=== PATIENT | female | born 1995 | race Caucasian/White ===

== ENCOUNTER 2017-07-27 23:17 | Emergency (ER) | payer MEDICAID ==
[~2017-07-27] VITALS: Ht 154.9 cm; Wt 74.0 kg
[~2017-07-27 23:17] MED LIST: ARIP10TA33 PO; QUET200T4 PO
[2017-07-28 01:22] LABS: HEMATOCRIT 45.9 % (34.6-47.8); HEMOGLOBIN 15.4 g/dL (11.7-16.4); WHITE BLOOD COUNT 10.6 x10^3/uL (4.5-13.2)
[2017-07-28 01:29] LABS: BLOOD UREA NITROGEN 8 mg/dL (7-18)
[2017-07-28 01:36] LABS: HCG UR OBC PASS
[2017-07-28] MEDS ORDERED: ONDANSETRON ODT 4 MG PO ONE (02:00)
[2017-07-28] MEDS ORDERED: IBUPROFEN 200 MG TABLET PO ONE (02:00)
[2017-07-28] MEDS ORDERED: IBUPROFEN 200 MG TABLET ONE (03:03)
[2017-07-28] MEDS ORDERED: ONDANSETRON ODT 4 MG ONE (03:03)
[2017-07-28 03:08] VITALS: BP 113/84
== END 2017-07-28 03:34 | disposition home or self-care (01) ==
LOC: ED 23:59
DX: I88.0 Nonspecific mesenteric lymphadenitis (principal); K21.9 Gastro-esophageal reflux disease without esophagitis; J45.909 Unspecified asthma, uncomplicated
CPT/HCPCS: 36415; 74176; 80048; 81001; 81025; 85025; 87086; 99285; Q0162

== ENCOUNTER 2017-08-14 00:44 | Emergency (ER) | payer MEDICAID ==
[~2017-08-14] VITALS: Ht 157.5 cm; Wt 76.1 kg
[2017-08-14 01:16] LABS: HCG UR OBC PASS; PATH.CAST-FLAG NOT PRESENT; SPERM-FLAG NOT PRESENT; SRC-FLAG NOT PRESENT; XTAL-FLAG NOT PRESENT; YLC-FLAG NOT PRESENT
[2017-08-14] MEDS ORDERED: ANTI-EMETIC PO (01:42)
[2017-08-14] MEDS ORDERED: ACID REFLUX MED PO (01:42)
[2017-08-14 04:11] VITALS: BP 116/70
== END 2017-08-14 04:13 | disposition home or self-care (01) ==
LOC: ED 01:44
DX: R10.32 Left lower quadrant pain (principal); R11.2 Nausea with vomiting, unspecified; R19.7 Diarrhea, unspecified; K21.9 Gastro-esophageal reflux disease without esophagitis; F41.9 Anxiety disorder, unspecified; F31.9 Bipolar disorder, unspecified; J45.909 Unspecified asthma, uncomplicated
CPT/HCPCS: 36415; 76830; 81001; 81025; 84703; 99285

== ENCOUNTER 2017-10-14 17:28 | Emergency (ER) | payer MEDICAID ==
[~2017-10-14] VITALS: Ht 157.5 cm; Wt 73.2 kg
[~2017-10-14 17:28] MED LIST changes: +ACID REFLUX MED PO; +ANTI-EMETIC PO
[2017-10-14] MEDS ORDERED: ONDANSETRON 2MG/ML, 2ML ONE (17:58)
[2017-10-14] MEDS ORDERED: ACETAMINOPHEN 325 MG TABLET ONE (17:58)
[2017-10-14] MEDS ORDERED: ACETAMINOPHEN 325 MG TABLET PO ONE (18:00)
[2017-10-14 18:12] LABS: RAPID INFLUENZA A Negative (Negative); RAPID INFLUENZA B Negative (Negative)
[2017-10-14] MEDS ORDERED: SODIUM CHLORIDE 0.9% 1,000ML IVBOLUS ONE ×2 (18:30→20:30)
[2017-10-14] MEDS ORDERED: ONDANSETRON 2MG/ML, 2ML IVPush ONE (18:30)
[2017-10-14 18:33] LABS: HEMATOCRIT 42.2 % (34.6-47.8); HEMOGLOBIN 14.4 g/dL (11.7-16.4); WHITE BLOOD COUNT 9.8 x10^3/uL (4.5-13.2)
[2017-10-14 18:43] LABS: ASPARTATE AMINO TRANSFERASE 20 U/L (15-37); BLOOD UREA NITROGEN 7 mg/dL (7-18)
[2017-10-14] MEDS ORDERED: SODIUM CHLORIDE FLUSH 10ML SYR IVF ONE (19:00)
[2017-10-14 21:21] LABS: DAU SCREEN DISCLAIMER
[2017-10-14 23:07] VITALS: BP 126/74
== END 2017-10-14 23:10 | disposition home or self-care (01) ==
LOC: ED 17:54
DX: O26.891 Other specified pregnancy related conditions, first trimester (principal); F12.129 Cannabis abuse with intoxication, unspecified; F14.129 Cocaine abuse with intoxication, unspecified; F10.129 Alcohol abuse with intoxication, unspecified; O99.341 Other mental disorders complicating pregnancy, first trimester; F31.9 Bipolar disorder, unspecified; K21.9 Gastro-esophageal reflux disease without esophagitis; Z3A.01 Less than 8 weeks gestation of pregnancy
CPT/HCPCS: 36415; 71010; 76700; 80053; 80307; 81003; 83605; 83690; 84145; 84443; 84702; 85025; 87040; 87081; 87147; 87400; 87880; 93005; 96374; 99285; J2405; J7030; G0479

== ENCOUNTER 2017-10-29 20:02 | Emergency (ER) | payer MEDICAID ==
[~2017-10-29] VITALS: Ht 157.5 cm; Wt 72.1 kg
[2017-10-29 20:41] LABS: HEMATOCRIT 43.5 % (34.6-47.8); HEMOGLOBIN 14.9 g/dL (11.7-16.4); WHITE BLOOD COUNT 8.7 x10^3/uL (4.5-13.2)
[2017-10-29 20:53] LABS: ASPARTATE AMINO TRANSFERASE 20 U/L (15-37); BLOOD UREA NITROGEN 13 mg/dL (7-18)
[2017-10-29 21:43] VITALS: BP 114/68
== END 2017-10-29 22:35 | disposition home or self-care (01) ==
LOC: ED 20:52
DX: N93.8 Other specified abnormal uterine and vaginal bleeding (principal); K21.9 Gastro-esophageal reflux disease without esophagitis; F31.9 Bipolar disorder, unspecified
CPT/HCPCS: 36415; 76801; 80053; 81001; 84702; 85025; 86901; 87086; 99285

== ENCOUNTER 2017-12-13 14:22 | Emergency (ER) | payer MEDICAID ==
[~2017-12-13] VITALS: Ht 157.5 cm; Wt 70.9 kg
[2017-12-13 14:24] VITALS: BP 118/82
[2017-12-13] MEDS ORDERED: DIPH,PERTUSS(ACELL),TET VAC/PF 0.5 ML IM-VACC ONE ×2 (14:51→15:00)
[2017-12-13] MEDS ORDERED: BACITRACIN ZINC OINT 500U/GM, 0.9 GM ONE (15:01)
== END 2017-12-13 15:20 | disposition home or self-care (01) ==
LOC: ED 14:40
DX: S71.151A Open bite, right thigh, initial encounter (principal); W54.0XXA Bitten by dog, initial encounter; Y93.9 Activity, unspecified; Y92.89 Other specified places as the place of occurrence of the external cause; Y99.8 Other external cause status
CPT/HCPCS: 90471; 90715; 99283

== ENCOUNTER 2018-03-30 05:15 | Emergency (ER) | payer MEDICAID ==
[~2018-03-30] VITALS: Ht 157.5 cm; Wt 63.7 kg
[2018-03-30 05:58] LABS: HCG UR SG 1.015 (1.003-1.030)
[2018-03-30 05:59] LABS: BASOPHILS # (AUTO) 0.02 x10^3/uL (0-0.3); BASOPHILS % (AUTO) 0 % (0-1); EOSINOPHILS # (AUTO) 0.01 x10^3/uL (0-0.8); EOSINOPHILS % (AUTO) 0 % (1-7); LYMPHOCYTES % (AUTO) 27 % (22-44); MD NO; MEAN CORPUSCULAR HEMOGLOBIN 30.9 pg (27.0-34.8); MEAN CORPUSCULAR HGB CONC 34.2 g/dL (32.4-35.8); MEAN CORPUSCULAR VOLUME 90.1 fL (80-100); MEAN PLATELET VOLUME 8.9 fL (7.4-10.4); MONOCYTES # (AUTO) 0.32 x10^3/uL (0-1.4); MONOCYTES % (AUTO) 5 % (2-9); NEUTROPHILS # (AUTO) 4.54 x10^3/uL (1.8-8.0); NEUTROPHILS % (AUTO) 68 % (42-75); PLATELET COUNT 342 x10^3/uL (130-400); RED BLOOD COUNT 5.02 x10^6/uL (3.82-5.3); RED CELL DISTRIBUTION WIDTH 13.8 % (9.6-15.2)
[2018-03-30 06:10] LABS: ALBUMIN 4.4 g/dL (3.4-5.0); ANION GAP 10 mmol/L (5-15); CHLORIDE 110 mmol/L (98-107)
[2018-03-30 06:11] LABS: CREATININE 0.66 mg/dL (0.55-1.02); SALICYLATE LEVEL < 1.7 mg/dL (2.8-20.0)
[2018-03-30 06:12] LABS: ACETAMINOPHEN < 2 mcg/mL (10-30)
[2018-03-30 06:14] LABS: AMPHETAMINE SCREEN, URINE Negative (Negative); BARBITURATE SCREEN, URINE Negative (Negative); BENZODIAZEPINE SCREEN, URINE Negative (Negative); CANNABINOID SCREEN, URINE Positive (Negative); COCAINE SCREEN, URINE Negative (Negative); METHADONE SCREEN, URINE Negative (Negative); OPIATE SCREEN, URINE Negative (Negative)
[2018-03-30] MEDS ORDERED: ZIPRASIDONE 20 MG INJ IM ONE ×2 (10:54→11:00)
[2018-03-30] MEDS ORDERED: ONDANSETRON ODT 4 MG ONE (11:21)
[2018-03-30] MEDS ORDERED: ONDANSETRON ODT 4 MG PO ONE (11:30)
[2018-03-30] MEDS ORDERED: LORazepam 1MG TABLET PO PRN (12:00)
[2018-03-30] MEDS ORDERED: ACETAMINOPHEN 325 MG TABLET PO PRN (12:00)
[2018-03-30] MEDS ORDERED: ONDANSETRON ODT 4 MG PO PRN (12:00)
[2018-03-30] MEDS ORDERED: ALBUTEROL SULFATE 2.5 MG/3 ML ONE (21:28)
[2018-03-30] MEDS ORDERED: ALBUTEROL SULFATE 2.5 MG/3 ML NPPB PRN (22:00)
[2018-03-31 12:23] VITALS: BP 118/74
[2018-04-02] MEDS ORDERED: MORPHINE SULFATE 4 MG/ML, 1ML ONE (13:42)
[2018-04-06] MEDS ORDERED: BACITRACIN ZINC OINT 500U/GM, 0.9 GM ONE (06:32)
== END 2018-03-30 14:19 ==
LOC: ED 07:10 → EDIP 11:25 → UNDOADMOB 11:25
DX: R45.851 Suicidal ideations (principal); F20.0 Paranoid schizophrenia; F10.20 Alcohol dependence, uncomplicated; F31.9 Bipolar disorder, unspecified; K21.9 Gastro-esophageal reflux disease without esophagitis; J45.909 Unspecified asthma, uncomplicated; F17.200 Nicotine dependence, unspecified, uncomplicated
CPT/HCPCS: 36415; 80048; 80307; 80329; 81025; 82040; 85025; 94640; 96372; 99285; J3486; Q0162; G0480

== ENCOUNTER 2018-04-25 19:39 | Observation (INO) | payer MEDICAID ==
[~2018-04-25] VITALS: Ht 160 cm; Wt 67.3 kg
[2018-04-25 20:39] LABS: BASOPHILS # (AUTO) 0.02 x10^3/uL (0-0.3); BASOPHILS % (AUTO) 0 % (0-1); EOSINOPHILS % (AUTO) 1 % (1-7); LYMPHOCYTES # (AUTO) 2.14 x10^3/uL (1-6.1); LYMPHOCYTES % (AUTO) 18 % (22-44); MD NO; MEAN CORPUSCULAR HEMOGLOBIN 30.8 pg (27.0-34.8); MEAN CORPUSCULAR HGB CONC 33.8 g/dL (32.4-35.8); MEAN CORPUSCULAR VOLUME 91.3 fL (80-100); MEAN PLATELET VOLUME 8.2 fL (7.4-10.4); MONOCYTES # (AUTO) 0.74 x10^3/uL (0-1.4); MONOCYTES % (AUTO) 6 % (2-9); NEUTROPHILS # (AUTO) 8.83 x10^3/uL (1.8-8.0); NEUTROPHILS % (AUTO) 75 % (42-75); PLATELET COUNT 380 x10^3/uL (130-400); RED BLOOD COUNT 4.66 x10^6/uL (3.82-5.3); RED CELL DISTRIBUTION WIDTH 14.4 % (9.6-15.2)
[2018-04-25 20:45] LABS: AMPHETAMINE SCREEN, URINE Negative (Negative); BARBITURATE SCREEN, URINE Negative (Negative); BENZODIAZEPINE SCREEN, URINE Negative (Negative); CANNABINOID SCREEN, URINE Positive (Negative); COCAINE SCREEN, URINE Negative (Negative); METHADONE SCREEN, URINE Negative (Negative); OPIATE SCREEN, URINE Negative (Negative)
[2018-04-25 20:46] LABS: ALBUMIN 3.7 g/dL (3.4-5.0); ANION GAP 9 mmol/L (5-15); CALCIUM 9.1 mg/dL (8.5-10.1); CHLORIDE 107 mmol/L (98-107)
[2018-04-25 20:49] LABS: SALICYLATE LEVEL < 1.7 mg/dL (2.8-20.0)
[2018-04-25 20:52] LABS: ALANINE AMINOTRANSFERASE 146 U/L (12-78); ALKALINE PHOSPHATASE 117 U/L (45-117); BILIRUBIN,TOTAL 0.6 mg/dL (0.2-1.0); CREATININE 0.67 mg/dL (0.55-1.02); TOTAL PROTEIN 7.2 g/dL (6.4-8.2)
[2018-04-25 20:59] LABS: ACETAMINOPHEN < 2 mcg/mL (10-30)
[2018-04-25] MEDS ORDERED: ZIPRASIDONE 20 MG INJ IM ONE (22:30)
[2018-04-25] MEDS ORDERED: ONDANSETRON ODT 4 MG PO PRN (23:00)
[2018-04-26 00:03] VITALS: BP 131/80
[2018-04-26 07:42] VITALS: BP 111/74
[2018-04-26] MEDS ORDERED: HYDROXYZINE PAMOATE 50MG CAP PO PRN (14:30)
[2018-04-26] MEDS ORDERED: BENZTROPINE 1 MG TABLET ONE (15:41)
[2018-04-26] MEDS ORDERED: BENZTROPINE 1 MG TABLET PO ONE (16:00)
[2018-04-26] MEDS: LORazepam 1MG TABLET PO PRN ×2 (16:02→21:10)
[2018-04-26 19:38] VITALS: BP 101/71
[2018-04-26] MEDS: BENZTROPINE 1 MG TABLET PO SCH (20:07)
[2018-04-26] MEDS: HALOPERIDOL 5 MG TABLET PO SCH (20:07)
[2018-04-27] MEDS: ACETAMINOPHEN 325 MG TABLET PO PRN (07:37)
[2018-04-27 08:00] VITALS: BP 112/74
[2018-04-27] MEDS: BENZTROPINE 1 MG TABLET PO SCH ×2 (09:11→20:23)
[2018-04-27] MEDS: HALOPERIDOL 5 MG TABLET PO SCH (09:11)
[2018-04-27 19:19] VITALS: BP 119/81
[2018-04-27] MEDS: LORazepam 1MG TABLET PO PRN (20:23)
[2018-04-28] MEDS: LORazepam 1MG TABLET PO PRN ×3 (04:53→19:38)
[2018-04-28] MEDS: ACETAMINOPHEN 325 MG TABLET PO PRN (07:27)
[2018-04-28] MEDS: BENZTROPINE 1 MG TABLET PO SCH (07:28)
[2018-04-28] MEDS: HALOPERIDOL 5 MG TABLET PO SCH (07:28)
[2018-04-28 07:38] VITALS: BP 115/80
[2018-04-28 19:22] VITALS: BP 104/63
== END 2018-04-28 20:23 ==
LOC: ED 20:37 → EDIP 22:08 → 3E 23:37
PROVIDERS: ADMIT Family Medicine; ATTEND Hospitalist
DX: R45.851 Suicidal ideations (principal); F31.9 Bipolar disorder, unspecified; F20.9 Schizophrenia, unspecified; G89.29 Other chronic pain; K21.9 Gastro-esophageal reflux disease without esophagitis; D72.829 Elevated white blood cell count, unspecified; R74.0 Nonspecific elevation of levels of transaminase and lactic acid dehydrogenase [LDH]; J45.909 Unspecified asthma, uncomplicated; F43.10 Post-traumatic stress disorder, unspecified
CPT/HCPCS: 36415; 80053; 80307; 80329; 84443; 84703; 85025; 93005; 96372; 99285; G0378; J3486; G0480

== ENCOUNTER 2018-10-27 23:27 | Emergency (ER) | payer MEDICAID ==
[2018-10-27] MEDS ORDERED: KETOROLAC 30 MG/1 ML ONE (23:56)
[2018-10-27] MEDS ORDERED: MAALOX/HYOSCYAMINE/LIDOCAINE 45 ML BTL ONE (23:56)
[2018-10-28] MEDS ORDERED: MAALOX/HYOSCYAMINE/LIDOCAINE 45 ML BTL PO ONE
[2018-10-28] MEDS ORDERED: KETOROLAC 30 MG/1 ML IM ONE
[2018-10-28 01:00] VITALS: BP 128/81
== END 2018-10-28 01:02 | disposition home or self-care (01) ==
LOC: ED 23:55
DX: R07.9 Chest pain, unspecified (principal); F20.9 Schizophrenia, unspecified; F41.9 Anxiety disorder, unspecified; K21.9 Gastro-esophageal reflux disease without esophagitis; F29 Unspecified psychosis not due to a substance or known physiological condition; J45.909 Unspecified asthma, uncomplicated; F32.9 Major depressive disorder, single episode, unspecified; F12.10 Cannabis abuse, uncomplicated; Z72.9 Problem related to lifestyle, unspecified
CPT/HCPCS: 36415; 71045; 85379; 93005; 96372; 99284; J1885; 99283

== ENCOUNTER 2019-03-21 08:02 | Emergency (ER) | payer MEDICAID ==
[~2019-03-21] VITALS: Ht 157.5 cm; Wt 76.0 kg
[2019-03-21 08:12] VITALS: BP 122/78
[2019-03-21] MEDS ORDERED: FAMOTIDINE 20 MG TABLET PO ONE (08:30)
[2019-03-21] MEDS ORDERED: DIPHENHYDRAMINE 25 MG CAPSULE PO ONE (08:30)
[2019-03-21] MEDS ORDERED: FAMOTIDINE 20 MG TABLET ONE (09:02)
[2019-03-21] MEDS ORDERED: DIPHENHYDRAMINE 25 MG CAPSULE ONE (09:03)
[2019-03-21 09:21] LABS: HCG UR SG 1.022 (1.003-1.030); MICROSCOPIC NOT IND
[2019-03-21 09:26] LABS: CULTURE INDICATED? NO
[2019-03-21] MEDS ORDERED: KETOROLAC 30 MG/1 ML IM ONE (10:00)
[2019-03-21] MEDS ORDERED: KETOROLAC 30 MG/1 ML ONE (10:01)
== END 2019-03-21 10:15 | disposition home or self-care (01) ==
LOC: ED 10:09
DX: L50.0 Allergic urticaria (principal)
CPT/HCPCS: 81003; 81025; 96372; 99284; J1885; J7512; Q0163

== ENCOUNTER 2019-03-21 17:19 | Emergency (ER) | payer MEDICAID ==
[~2019-03-21] VITALS: Ht 157.5 cm; Wt 76.5 kg
[2019-03-21] MEDS ORDERED: DIPHENHYDRAMINE 25 MG CAPSULE PO ONE (17:30)
[2019-03-21] MEDS ORDERED: FAMOTIDINE 20 MG TABLET PO ONE (17:30)
--- NOTE | 2019-03-21 17:46 | NUR ---
PT AMBULATORY WITH STEADY GAIT TO ROOM AT THIS TIME
[2019-03-21] MEDS ORDERED: DIPHENHYDRAMINE 25 MG CAPSULE ONE (17:51)
[2019-03-21] MEDS ORDERED: FAMOTIDINE 20 MG TABLET ONE (17:51)
[2019-03-21 17:53] LABS: BASOPHILS # (AUTO) 0.01 x10^3/uL (0-0.1); BASOPHILS % (AUTO) 0 % (0-1); EOSINOPHILS % (AUTO) 0 % (1-7); LYMPHOCYTES # (AUTO) 1.07 x10^3/uL (1-3.4); LYMPHOCYTES % (AUTO) 11 % (22-44); MD NO; MEAN CORPUSCULAR HEMOGLOBIN 31.2 pg (27.0-34.8); MEAN CORPUSCULAR HGB CONC 34.2 g/dL (32.4-35.8); MEAN CORPUSCULAR VOLUME 91.2 fL (80-100); MEAN PLATELET VOLUME 8.2 fL (7.4-10.4); MONOCYTES # (AUTO) 0.11 x10^3/uL (0.2-0.8); MONOCYTES % (AUTO) 1 % (2-9); NEUTROPHILS # (AUTO) 8.56 x10^3/uL (1.8-6.8); NEUTROPHILS % (AUTO) 88 % (42-75); PLATELET COUNT 407 x10^3/uL (130-400); RED BLOOD COUNT 4.94 x10^6/uL (3.82-5.3); RED CELL DISTRIBUTION WIDTH 13.8 % (9.6-15.2)
--- NOTE | 2019-03-21 17:59 | NUR ---
23 Y/O FEMALE PRESENTS TO ED WITH C/O "I WAS HERE EARLIER WITH AN ALLERGIC REACTION. MY RASH WENT AWAY, BUT IT FEELS LIKE MY HEART IS RACING." NO ACUTE DISTRESS NOTED. NO NEEDS REQUESTED AT THIS TIME. NO C/O N/V/D, TRAUMA, SYNCOPE, CP, SOB.
[2019-03-21 18:04] LABS: ANION GAP 8 mmol/L (5-15); CALCIUM 9.1 mg/dL (8.5-10.1); CHLORIDE 109 mmol/L (98-107); CREATININE 0.76 mg/dL (0.55-1.02)
--- NOTE | 2019-03-21 18:49 | NUR ---
pt resting on gurney. no acute distress noted. pt stated "I FELT SOB, SO I TOOK MY INHALER." PT EDUCATED REGARDING TO LET THE RN KNOW TO PASS ALONG TO DR. JENKINS BEDSIDE.
[2019-03-21 18:50] VITALS: BP 105/59
--- NOTE | 2019-03-21 19:02 | NUR ---
BEDSIDE REPORT TO ALISSA MORRIS.
== END 2019-03-21 19:45 | disposition home or self-care (01) ==
LOC: ED 17:53
DX: R00.2 Palpitations (principal); R00.0 Tachycardia, unspecified; K21.9 Gastro-esophageal reflux disease without esophagitis; J45.909 Unspecified asthma, uncomplicated
CPT/HCPCS: 36415; 71045; 80048; 84145; 85025; 85379; 93005; 99284; Q0163

== ENCOUNTER 2019-04-14 13:18 | Emergency (ER) | payer MEDICAID ==
[~2019-04-14] VITALS: Ht 157.5 cm; Wt 79.2 kg
[2019-04-14 13:31] VITALS: BP 117/63
[2019-04-14] MEDS ORDERED: FLUORESCEIN OPHTHALMIC 1 MG STRIP ONE ×2 (13:55→15:25)
[2019-04-14] MEDS ORDERED: PROPARACAINE OPHTH 0.5%, 15ML ONE (13:55)
[2019-04-14] MEDS ORDERED: FLUORESCEIN OPHTHALMIC 1 MG STRIP EACHEYE ONE (14:00)
[2019-04-14] MEDS ORDERED: PROPARACAINE OPHTH 0.5%, 15ML EACHEYE ONE (14:00)
--- NOTE | 2019-04-14 14:02 | NUR ---
PT AMBULATORY TO ROOM 20 W/ C/O SOMETHING IN HER L EYE CAUSING BLURRY VISION HAPPENED AT 1245 TODAY. [facility].
--- NOTE | 2019-04-14 14:45 | NUR ---
PT R EYE IRRIGATED W/ 500 ML NS BAG. NO RELIEF FROM SENSATION OF FOREIGN BODY. ERP NOTIFIED.
[2019-04-14] MEDS ORDERED: ERYTHROMYCIN OPHTH 0.5%, 1GM RIGHTEYE ONE (15:00)
--- NOTE | 2019-04-14 15:04 | NUR ---
YELLOW SLIP SENT TO PHARMACY FOR MEDS PER JAN.
== END 2019-04-14 15:52 | disposition home or self-care (01) ==
LOC: ED 15:45
DX: H57.11 Ocular pain, right eye (principal)
CPT/HCPCS: 99282; 99283

== ENCOUNTER 2019-05-02 00:25 | Emergency (ER) | payer MEDICAID ==
[~2019-05-02] VITALS: Ht 157.5 cm; Wt 79.5 kg
--- NOTE | 2019-05-02 00:39 | NUR ---
assessment made. chart up for MD to see.
--- NOTE | 2019-05-02 00:41 | NUR ---
ERP at bedside.
[2019-05-02 01:05] VITALS: BP 114/62
--- NOTE | 2019-05-02 01:05 | NUR ---
patient discharged with prescription and instruction. verbalized understanding.
== END 2019-05-02 01:09 | disposition home or self-care (01) ==
LOC: ED 01:00
DX: L03.311 Cellulitis of abdominal wall (principal); N99.89 Other postprocedural complications and disorders of genitourinary system; K21.9 Gastro-esophageal reflux disease without esophagitis; J45.909 Unspecified asthma, uncomplicated
CPT/HCPCS: 99283

== ENCOUNTER 2019-05-25 02:38 | Emergency (ER) | payer MEDICAID ==
[~2019-05-25] VITALS: Ht 157.5 cm; Wt 77.1 kg
[2019-05-25] MEDS ORDERED: ONDANSETRON 2MG/ML, 2ML ONE (03:11)
--- NOTE | 2019-05-25 03:20 | NUR ---
PT C/O LLQ ABD PAIN, N/V. PT'S BOYFRIEND REPORTS PT HAS BEEN DRINKING ETOH TONIGHT AND VOMITING. MONITORS APPLIED, SIDERAILS UP X2, CALL LIGHT WITHIN REACH Addendum: 05/25/19 at 0338 by EDGARD PROVIDED PT WITH URINE CUP, DISCUSSED NEED FOR URINE SAMPLE.
--- NOTE | 2019-05-25 03:21 | NUR ---
IV SITE STARTED, IV FLUIDS INFUSING, MEDICATED PER MAR. DISCUSSEDNEED FOR URINE SAMPLE, PT STATED " I JUST WENT TO BATHROOM 2 MINUTES AGO, I CAN'T GO".
[2019-05-25] MEDS ORDERED: SODIUM CHLORIDE 0.9% 1,000ML IVBOLUS ONE (03:30)
[2019-05-25] MEDS ORDERED: ONDANSETRON 2MG/ML, 2ML IVPush ONE (03:30)
[2019-05-25] MEDS ORDERED: SODIUM CHLORIDE FLUSH 10ML SYR IVF ONE (03:30)
[2019-05-25 03:45] LABS: BASOPHILS # (AUTO) 0.03 x10^3/uL (0-0.1); BASOPHILS % (AUTO) 0 % (0-1); EOSINOPHILS # (AUTO) 0.15 x10^3/uL (0-0.4); EOSINOPHILS % (AUTO) 2 % (1-7); LYMPHOCYTES # (AUTO) 2.27 x10^3/uL (1-3.4); LYMPHOCYTES % (AUTO) 36 % (22-44); MD NO; MEAN CORPUSCULAR HEMOGLOBIN 31.7 pg (27.0-34.8); MEAN CORPUSCULAR HGB CONC 34.2 g/dL (32.4-35.8); MEAN CORPUSCULAR VOLUME 92.7 fL (80-100); MEAN PLATELET VOLUME 8.3 fL (7.4-10.4); MONOCYTES # (AUTO) 0.39 x10^3/uL (0.2-0.8); MONOCYTES % (AUTO) 6 % (2-9); NEUTROPHILS # (AUTO) 3.51 x10^3/uL (1.8-6.8); NEUTROPHILS % (AUTO) 55 % (42-75); PLATELET COUNT 313 x10^3/uL (130-400); RED BLOOD COUNT 4.62 x10^6/uL (3.82-5.3); RED CELL DISTRIBUTION WIDTH 12.9 % (9.6-15.2)
[2019-05-25 03:49] LABS: ALANINE AMINOTRANSFERASE 71 U/L (12-78); ALBUMIN 3.8 g/dL (3.4-5.0); ANION GAP 10 mmol/L (5-15); CALCIUM 8.7 mg/dL (8.5-10.1); CHLORIDE 111 mmol/L (98-107); CREATININE 0.63 mg/dL (0.55-1.02)
[2019-05-25 03:53] LABS: ALKALINE PHOSPHATASE 88 U/L (45-117); BILIRUBIN,TOTAL 0.2 mg/dL (0.2-1.0); TOTAL PROTEIN 7.2 g/dL (6.4-8.2)
--- NOTE | 2019-05-25 03:59 | NUR ---
PT UP TO RR WITH STANDBY ASSIST, PROVIDED PT WITH URINE CUP FOR SAMPLE
--- NOTE | 2019-05-25 04:08 | NUR ---
URINE SAMPLE SENT
[2019-05-25 04:16] VITALS: BP 94/57
--- NOTE | 2019-05-25 04:16 | NUR ---
PT RESTING CALMLY, NADN, MONITORS IN PLACE, CALL LIGHT WITHIN REACH. AWAITING URINE RESULT
[2019-05-25 04:24] LABS: MICROSCOPIC NOT IND
[2019-05-25 04:26] LABS: CULTURE INDICATED? NO
== END 2019-05-25 05:04 | disposition home or self-care (01) ==
LOC: ED 03:06
DX: K29.20 Alcoholic gastritis without bleeding (principal)
CPT/HCPCS: 36415; 80053; 81003; 83690; 84703; 85025; 96374; 96375; 99283; J2405; J7030

== ENCOUNTER 2019-07-07 05:37 | Emergency (ER) | payer MEDICAID ==
[~2019-07-07] VITALS: Ht 157.5 cm; Wt 79.2 kg
[2019-07-07 07:39] VITALS: BP 115/74
== END 2019-07-07 08:43 | disposition home or self-care (01) ==
LOC: ED 08:07
DX: R51 Headache (principal); R11.0 Nausea; K21.9 Gastro-esophageal reflux disease without esophagitis; H53.149 Visual discomfort, unspecified; F31.9 Bipolar disorder, unspecified; F20.9 Schizophrenia, unspecified; F41.1 Generalized anxiety disorder; Z72.9 Problem related to lifestyle, unspecified
CPT/HCPCS: 96374; 96375; 99283; J0780; J1200; J1885

== ENCOUNTER 2019-12-14 16:05 | Emergency (ER) | payer MEDICAID ==
[~2019-12-14] VITALS: Ht 157.5 cm; Wt 79.6 kg
[2019-12-14 16:19] VITALS: BP 141/86
--- NOTE | 2019-12-14 17:24 | NUR ---
TO ROOM FROM LOBBY. NAD.
[2019-12-14] MEDS ORDERED: DEXAMETHASONE 4 MG TABLET PO ONE (18:00)
[2019-12-14] MEDS ORDERED: DEXAMETHASONE 4 MG TABLET ONE (18:15)
== END 2019-12-14 19:49 | disposition home or self-care (01) ==
LOC: ED 19:43
DX: J02.8 Acute pharyngitis due to other specified organisms (principal); B97.89 Other viral agents as the cause of diseases classified elsewhere; K21.9 Gastro-esophageal reflux disease without esophagitis; J45.909 Unspecified asthma, uncomplicated
CPT/HCPCS: 87081; 87880; 99283

== ENCOUNTER 2020-12-10 13:51 | Emergency (ER) | payer MEDICAID ==
[~2020-12-10] VITALS: Ht 157.5 cm; Wt 81.3 kg
--- NOTE | 2020-12-10 14:54 | NUR ---
radio rigger note: Pt to room from lobby.
[2020-12-10] MEDS ORDERED: KETOROLAC 30 MG/1 ML ONE (15:11)
[2020-12-10 15:44] LABS: MICROSCOPIC NOT IND
[2020-12-10 15:45] LABS: BASOPHILS % (AUTO) 0 % (0-1); EOSINOPHILS % (AUTO) 2 % (1-7); LYMPHOCYTES % (AUTO) 28 % (22-44); MEAN CORPUSCULAR HEMOGLOBIN 30.7 pg (27.0-34.8); MEAN CORPUSCULAR HGB CONC 34.5 g/dL (32.4-35.8); MEAN PLATELET VOLUME 8.3 fL (7.4-10.4); MONOCYTES % (AUTO) 6 % (2-9); NEUTROPHILS % (AUTO) 63 % (42-75); PLATELET COUNT 350 x10^3/uL (130-400); RED BLOOD COUNT 4.77 x10^6/uL (3.82-5.3); RED CELL DISTRIBUTION WIDTH 13.5 % (9.6-15.2)
[2020-12-10 15:47] LABS: ALBUMIN 3.9 g/dL (3.4-5.0); ANION GAP 6 mmol/L (5-15); CALCIUM 9.1 mg/dL (8.5-10.1); CHLORIDE 107 mmol/L (98-107); CREATININE 0.81 mg/dL (0.55-1.02)
[2020-12-10 15:53] LABS: MD NO
[2020-12-10] MEDS ORDERED: KETOROLAC 30 MG/1 ML IM ONE (16:00)
[2020-12-10 16:49] VITALS: BP 106/64
== END 2020-12-10 17:07 | disposition home or self-care (01) ==
LOC: ED 15:35
DX: R30.0 Dysuria (principal); G44.219 Episodic tension-type headache, not intractable; R10.32 Left lower quadrant pain; Z98.51 Tubal ligation status
CPT/HCPCS: 36415; 80048; 81003; 82040; 84703; 85025; 96372; 99283; J1885

== ENCOUNTER 2021-05-04 17:41 | Emergency (ER) | payer MEDICAID ==
[~2021-05-04] VITALS: Ht 157.5 cm; Wt 76.1 kg
[2021-05-04 17:47] VITALS: BP 163/92
[2021-05-04 18:34] LABS: BASOPHILS % (AUTO) 1 % (0-1); EOSINOPHILS % (AUTO) 1 % (1-7); LYMPHOCYTES % (AUTO) 30 % (22-44); MEAN CORPUSCULAR HGB CONC 34.6 g/dL (32.4-35.8); MEAN PLATELET VOLUME 8.4 fL (7.4-10.4); MONOCYTES % (AUTO) 6 % (2-9); NEUTROPHILS % (AUTO) 62 % (42-75); PLATELET COUNT 406 x10^3/uL (130-400); RED BLOOD COUNT 5.08 x10^6/uL (3.82-5.3); RED CELL DISTRIBUTION WIDTH 13.4 % (9.6-15.2)
[2021-05-04 18:45] LABS: ALBUMIN 4.3 g/dL (3.4-5.0); ANION GAP 10 mmol/L (5-15); CALCIUM 9.3 mg/dL (8.5-10.1); CHLORIDE 108 mmol/L (98-107); CREATININE 0.73 mg/dL (0.55-1.02)
[2021-05-04 18:47] LABS: SALICYLATE LEVEL < 1.7 mg/dL (2.8-20.0)
--- NOTE | 2021-05-04 18:49 | NUR ---
PT HAS BEEN PLACED ON A LEGAL HOLD CLOTHING AND ALL BELONGINGS HAVE BEEN REMOVED MOTHER REQUESTED TO TAKE ALL OF HER BLEONINGS HOME ALL BELONGINGS GIVEN TO THE MOTHER PT HAS GIVEN VERBAL CONSENT TO GIVE MOTHER ANY MEDICAL INFORMTION MOTHER: TIFFANY GALLEGO [phone]
[2021-05-04] MEDS ORDERED: POTASSIUM CHLORIDE 20 MEQ PACKET PO ONE (19:00)
--- NOTE | 2021-05-04 19:05 | NUR ---
U to accept pending tox screen and rapid COVID
[2021-05-04] MEDS ORDERED: POTASSIUM CHLORIDE 20 MEQ PACKET ONE (20:08)
[2021-05-04] MEDS ORDERED: QUETIAPINE 100MG TABLET ONE (20:09)
--- NOTE | 2021-05-04 20:16 | NUR ---
PT INITIALLY REFUSED ALL MEDS AND BEING BELLIGERANT MAKING INNAPROPRIATE COMMENTS AND RANDOM WORDS. DR. VERA TO BEDSIDE TO SPEAK WITH PT AND ENCOURAGE HER TO TAKE HER MEDS. MEDS PLACED IN CUP OF WATER PER INSTRUCTIONS, AND PT SAYS SHE WILL TAKE HER MEDS. PT TOOK MEDS AND NOW TRYING TO GIVE URINE SAMPLE. COVID SWAB DONE AND WALKED TO LAB.
--- NOTE | 2021-05-04 20:40 | NUR ---
PT CALM AND RESTING IN BED. TOOK ALL HER MEDS, AND WAS ASKED TO PRODUCE SOME URINE FOR A SAMPLE. PT WENT TO THE BATHROOM, AND TOOK THE URINE CUP, FILLED IT WITH WATER AND THEN DRANK IT FOR THE SITTER, AND WENT BACK TO HER ROOM. PT HAS A SITTER OUTSIDE OF ROOM, WITH EYES ON PT.
--- NOTE | 2021-05-04 20:53 | NUR ---
PT WALKED OUT OF ROOM, AND BEGAN SHOUTING "THERES GONNA BE A RUMBLE UP IN HERE", PT SQUARING UP TO THE SITTER. RN TO BEDSIDE AND INFORMED PT TO GO BACK IN HER ROOM. PT WALKED BACK IN AND REMAINS AGITATED. SITTER ADVISED TO CALL RN OR SECURITY IF THAT HAPPENS AGAIN, AND PT WILL BE ASSESED AT THAT TIME.
[2021-05-04] MEDS ORDERED: QUETIAPINE 100MG TABLET PO SCH (21:00)
--- NOTE | 2021-05-04 21:05 | NUR ---
PT WALKING IN AND OUT OF ROOM, AND STATES SHE WILL GIVE URINE SAMPLE AT THIS TIME. PT THEN COMES OUT OF BATHROOM, DRINKING WATER OUT OF URINE CUP. PT BACK TO HER ROOM, DOOR CLOSED AND ALL [place] CLOSED. SITTER AT DOORWAY WITH EYES ON PT.
[2021-05-04] MEDS ORDERED: HALOPERIDOL 5 MG/ML ONE (21:10)
--- NOTE | 2021-05-04 21:17 | NUR ---
PT HAS BEGUN TO PUNCH THE WINDOW TO HER ROOM. THREATENING THE SITTER. MD UPDATED AND MED ORDER RECEIVED. PT ON LEGAL HOLD, AND MEDICATED PER MD AT THIS TIME WITH IM HALDOL TO RIGHT GLUTEUS BEN.
[2021-05-04] MEDS ORDERED: HALOPERIDOL 5 MG/ML IM ONE (21:30)
--- NOTE | 2021-05-04 21:45 | NUR ---
PT CONTINUES TO BE VERY AGGRESSIVE AND VIOLENT. SECURITY CALLED TO BEDSIDE AND MD ORDER RECEIVED FOR 4 POINT HARD LIMB RESTRAINTS. SECURITY PLACED PT RESTRAINTS PROPERLY AND PT AWAKE AND PROVIDED WATER AND SHE DRANK IT WITHOUT ISSUE. PT PROVIDED BLANKETS FOR COMFORT, AND ADVISED TO REST. PSYCH UNIT IS ABLE TO TAKE PT AND HAS A ROOM FOR HER, BUT THEY NEED A UDS AND PT CONTINUES TO REFUSE TO COOPERATE AND PROVIDE URINE.
[2021-05-04] MEDS ORDERED: LORazepam 2 MG/ML, 1ML ONE (21:56)
[2021-05-04] MEDS ORDERED: LORazepam 2 MG/ML, 1ML IM ONE (22:00)
--- NOTE | 2021-05-04 22:00 | NUR ---
Patient now in restraints. Contacted [facility] to inform them of the change who is denying patient at this time. [facility], [facility], and [facility].
--- NOTE | 2021-05-04 22:06 | NUR ---
PT BEING MONITORED Q15MIN FOR RESTRAINT PROTOCOLS. PT GIVEN WATER AGAIN, AND PROVIDED MORE WARM BLANKETS PER REQUEST. SITTER AT BEDSIDE AND EYES ON PT.
--- NOTE | 2021-05-04 22:32 | NUR ---
PT REQUESTED A BED HUTCHINS, AND ONE IS PROVIDED AND PRIVACY PROVIDED TO PT. PT THEN CALLED RN BACK 10 MIN LATER SAYING SHE'S DONE. PT ASKED FOR WATER AND PROVIDED WITH A CUP OF WATER THAT SHE DRANK WITH ASSISTANCE FROM RN. PTS BEDPAN REMOVED AND NO URINE IN HUTCHINS, PT DID NOT URINATE. PT REMAINS AWAKE AND NON COOPERATIVE WITH HER BEHAVIOR. MD IS AWARE AND ADVISED OF CURRENT SITUATION. MD ORDER FOR RESTRAINTS AT BEDSIDE WITH MONITORING PAPERWORK.
--- NOTE | 2021-05-04 22:45 | NUR ---
Nicolas from [facility] called to inform that [facility] is not contracted with her insurance and pt would be a self pay.
--- NOTE | 2021-05-04 23:36 | NUR ---
PT IS ASLEEP AT THIS TIME, AND IS EASILY AROUSABLE. PT A LOT MORE CALM, AND ALL FOUR LEATHER RESTRAINTS REMOVED AT THIS TIME, AND WARM BLANKETS PROVIDED TO PT. PT CALM AND THANKFUL FOR THE BLANKETS. SITTER AT DOORWAY, AND EYES ON PT.
--- NOTE | 2021-05-05 | NUR ---
Urmila malik in ED - 05/05/21 at 0014 by BRIA PTS FOUR POINT LEATHER RESTRAINTS RELEASED AT THIS TIME, PT IS CALM AND SLEEPY AND COOPERATIVE. PT PROVIDED MORE BLANKETS AND TURNED TO SLEEP ON HER SIDE.
--- NOTE | 2021-05-05 00:50 | NUR ---
BREAK RN: PT RESTING ON GURNEY AFTER WALKING TO AND FROM RESTROOM FOR UDS, PT UNABLE TO URINATE, NAD, APPEARS COMFORTABLE EYES CLOSED, EVEN AND UNLABORED RESPIRATIONS. COVID SWAB OBTAINED AND WALKED TO LAB. BED IN LOWEST, RAILS ENGAGED, ROOM SECURED, SITTER IN LINE OF SIGHT, TM.
[2021-05-05 02:15] LABS: AMPHETAMINE SCREEN, URINE Negative (Negative); BARBITURATE SCREEN, URINE Negative (Negative); BENZODIAZEPINE SCREEN, URINE Negative (Negative); CANNABINOID SCREEN, URINE Positive (Negative); COCAINE SCREEN, URINE Negative (Negative); METHADONE SCREEN, URINE Negative (Negative); OPIATE SCREEN, URINE Negative (Negative)
--- NOTE | 2021-05-05 03:17 | NUR ---
BREAK RN: PT RESTING ON [place], NAD, APPEARS COMFORTABLE EYES CLOSED, EVEN AND UNLABORED RESPIRATIONS. BED IN LOWEST, RAILS ENGAGED, ROOM SECURED, SITTER IN LINE OF SIGHT, RACQUEL.
--- NOTE | 2021-05-05 04:07 | NUR ---
TASK RN: REPORT CALLED TO U, PT TO BE TRANSFERRED TO FLOOR.
[2021-05-09] MEDS ORDERED: QUET100T PO (15:33)
== END 2021-05-05 04:07 ==
LOC: ED 18:52
DX: F20.9 Schizophrenia, unspecified (principal); K21.9 Gastro-esophageal reflux disease without esophagitis; F31.9 Bipolar disorder, unspecified
CPT/HCPCS: 36415; 80048; 80299; 80307; 80320; 82040; 84703; 85025; 96372; 99285; J1630; 80329; G0480

== ENCOUNTER 2021-05-26 10:35 | Emergency (ER) | payer MEDICAID ==
[~2021-05-26] VITALS: Ht 157.5 cm; Wt 77.3 kg
[~2021-05-26 10:35] MED LIST changes: +QUET100T PO
--- NOTE | 2021-05-26 11:07 | NUR ---
FIRST CONTACT WITH PATIENT: PATIENT WALKED BACK FROM TRIAGE WITH CHIEF C/O LOSS OF APPETITIE, N/V/D X2 DAYS. PER PATIENT SHE IS ALSO HAVING ABD PAIN, HAS BEEN CONFUSED RECENTLY. HERE 2 WEEKS AGO FOR SIMILAR SYMPTOMS, "LOW POTASSIUM AND SCHIZOAFFECTIVE DISORDER." A&O, NADN, CONNECTED TO MONITOR, VSS, SIGNIFICANT OTHER AT BEDSIDE, CALL LIGHT WITHIN REACH.
--- NOTE | 2021-05-26 12:25 | NUR ---
i am assuming care of this pt while gwen (rn) has a lunch break. sbar was exchanged at the bedside.
[2021-05-26] MEDS ORDERED: ONDANSETRON 2MG/ML, 2ML ONE (12:56)
[2021-05-26] MEDS ORDERED: SODIUM CHLORIDE FLUSH 10ML SYR IVF ONE (13:00)
[2021-05-26] MEDS ORDERED: ONDANSETRON 2MG/ML, 2ML IVPush ONE (13:00)
[2021-05-26] MEDS ORDERED: SODIUM CHLORIDE 0.9% 1,000ML IVBOLUS ONE (13:00)
[2021-05-26 13:01] VITALS: BP 133/91
--- NOTE | 2021-05-26 13:08 | NUR ---
22 GAUGE IV STARTED LFA, PATIENT MEDICATED PER eMAR, EDUCATED ABOUT NEED FOR URINE SAMPLE, CONNECTED TO MONITOR, VSS, NADN, SIGNIFICANT OTHER AT BEDSIDE, CALL LIGHT WITHIN REACH.
--- NOTE | 2021-05-26 13:24 | NUR ---
US AT BEDSIDE AND FAST FOOD ASSISTANT RESTAURANT MANAGER AT BEDSIDE.
[2021-05-26 14:13] LABS: BASOPHILS % (AUTO) 0 % (0-1); EOSINOPHILS % (AUTO) 0 % (1-7); LYMPHOCYTES % (AUTO) 15 % (22-44); MEAN CORPUSCULAR HEMOGLOBIN 30.5 pg (27.0-34.8); MEAN CORPUSCULAR HGB CONC 34.1 g/dL (32.4-35.8); MONOCYTES % (AUTO) 5 % (2-9); NEUTROPHILS % (AUTO) 81 % (42-75); PLATELET COUNT 384 x10^3/uL (130-400); RED BLOOD COUNT 4.87 x10^6/uL (3.82-5.3); RED CELL DISTRIBUTION WIDTH 13.9 % (9.6-15.2)
[2021-05-26 14:23] LABS: ANION GAP 6 mmol/L (5-15); CHLORIDE 111 mmol/L (98-107)
[2021-05-26 14:29] LABS: ALANINE AMINOTRANSFERASE 65 U/L (12-78); ALKALINE PHOSPHATASE 124 U/L (45-117); BILIRUBIN,TOTAL 0.6 mg/dL (0.2-1.0); CREATININE 0.61 mg/dL (0.55-1.02); TOTAL PROTEIN 8.1 g/dL (6.4-8.2)
[2021-05-26 14:40] LABS: MICROSCOPIC NOT IND
--- NOTE | 2021-05-26 15:09 | NUR ---
Patient & BF given discharge instructions and Rx, they have confirmed that they understand the instructions. Patient ambulatory with steady gait.
== END 2021-05-26 15:10 | disposition home or self-care (01) ==
LOC: ED 11:52
DX: R10.84 Generalized abdominal pain (principal); R11.2 Nausea with vomiting, unspecified; K21.9 Gastro-esophageal reflux disease without esophagitis; J45.909 Unspecified asthma, uncomplicated
CPT/HCPCS: 36415; 76700; 80053; 81003; 83690; 84703; 85025; 96361; 96374; 99284; J2405; J7030

== ENCOUNTER 2021-05-29 10:46 | Emergency (ER) | payer MEDICAID ==
[~2021-05-29] VITALS: Ht 157.5 cm; Wt 76.0 kg
--- NOTE | 2021-05-29 11:20 | NUR ---
Pt presents to the ER for psychosis and manic phase. She has word salad. She is cooperative. Went to bathroom to attempt UA, pt returned with soap and water in urine cup, wipey in cup and small white rocks in th bottom of cup. In view of sitter.
--- NOTE | 2021-05-29 12:06 | NUR ---
Brett to bedside for eval.
[2021-05-29 12:49] LABS: BASOPHILS % (AUTO) 1 % (0-1); EOSINOPHILS % (AUTO) 0 % (1-7); LYMPHOCYTES % (AUTO) 20 % (22-44); MEAN CORPUSCULAR HEMOGLOBIN 30.8 pg (27.0-34.8); MEAN CORPUSCULAR HGB CONC 34.5 g/dL (32.4-35.8); MEAN PLATELET VOLUME 8.1 fL (7.4-10.4); MONOCYTES % (AUTO) 6 % (2-9); NEUTROPHILS % (AUTO) 74 % (42-75); PLATELET COUNT 431 x10^3/uL (130-400); RED BLOOD COUNT 5.13 x10^6/uL (3.82-5.3); RED CELL DISTRIBUTION WIDTH 13.7 % (9.6-15.2)
[2021-05-29 13:01] LABS: ALBUMIN 4.6 g/dL (3.4-5.0); ANION GAP 5 mmol/L (5-15); CALCIUM 9.9 mg/dL (8.5-10.1); CHLORIDE 108 mmol/L (98-107); CREATININE 0.61 mg/dL (0.55-1.02)
[2021-05-29 13:02] LABS: SALICYLATE LEVEL < 1.7 mg/dL (2.8-20.0)
--- NOTE | 2021-05-29 13:13 | NUR ---
JUST GETTING REPORT AND PATIENT IN BATHROOM WITH DOOR SLIGHTLY CLOSED AND TOOK LID OFF URINE CUP AND BEGAN SHOVING FINGER IN URINE CUP CAUSING TINY LACERATION TO RIGHT PINKY. TOOK URINE CUP AND MONIOTIRED PATIENT BACK TO ROOM. WILL GET REPORT FROM RN, PATIENT IN ROOM AND SAFE, WITH SITTER OUTSIDE ROOM.
--- NOTE | 2021-05-29 13:16 | NUR ---
PATIENT WITH TECH GOING TO BATHROOM AND REMOVED LID TO URINE CUP AND ATTEMPTED TO CUT HERSELF WITH TRANSFER DEVICE. QUICKLY REMOVED CUP FROM HER AND DOOR OPEN, HELPED HER GET INTO BED WITH SITTER OUTSIDE ROOM. AWAITING REPORT AND WILL ASSUME CARE OF PATIENT.
--- NOTE | 2021-05-29 13:26 | NUR ---
report from ALISSA Solomon. patient hx psychosis, in manic stage. she is talking about unrelated issues nonstop, oriented x3. no urine collected.
--- NOTE | 2021-05-29 13:28 | NUR ---
boyfriend cecilia [phone] was who called ems concerned for patient, not acting like self or responding appropriately. unsure if ok to give him data will wait for patient's wishes.
--- NOTE | 2021-05-29 13:28 | NUR ---
requested hospital bed.
--- NOTE | 2021-05-29 14:24 | NUR ---
SWABBED PATIENT FOR COVID. SHE IS HAVING RACING DELUSIONAL THOUGHTS, THINKS MARY TRUMP IN ROOM AND THINKS RANDOM PEOPLE THERE, TALKING TO THEM. TRYING TO GET PATIENT URINE, GAVE HER THREE GLASSES WATER. SHE POKED HOLE IN ONE AND ALL OVER FLOOR. DRANK ONE. ON TOILET NOW. PATIENT ATE LUNCH.
--- NOTE | 2021-05-29 14:30 | NUR ---
CC URINE SENT. PATIENT NOW SWEARING AT ALL STAFF.
[2021-05-29 14:55] LABS: AMPHETAMINE SCREEN, URINE Negative (Negative); BARBITURATE SCREEN, URINE Negative (Negative); BENZODIAZEPINE SCREEN, URINE Negative (Negative); CANNABINOID SCREEN, URINE Positive (Negative); COCAINE SCREEN, URINE Negative (Negative); METHADONE SCREEN, URINE Negative (Negative); OPIATE SCREEN, URINE Negative (Negative)
--- NOTE | 2021-05-29 15:04 | NUR ---
patient paces around room talkign about lilo zuñiga
--- NOTE | 2021-05-29 15:36 | NUR ---
PATIENT FLIPPING EVERYONE OFF THAT WALKS BY STANDING AT DOOR
--- NOTE | 2021-05-29 16:31 | NUR ---
REPORT TO TOMI MAXWELL PATIENT TO GO TO THIRD FLOOR.
[2021-05-29 16:34] VITALS: BP 132/78
--- NOTE | 2021-05-29 16:44 | NUR ---
CALLED SECURITY PATIENT GOT REALLY AGITATED, STRIPPED DOWN AND BEGAN ACTING LIKE SHE'S GOING TO PUNCH ME. SECURITY CAME. WAS TRYING TO GET PATIENT IN BED FOR TRANSPORT UPSTAIRS.
[2021-05-29] MEDS ORDERED: LORazepam 1MG TABLET ONE (16:51)
[2021-05-29] MEDS ORDERED: LORazepam 1MG TABLET PO ONE (17:00)
--- NOTE | 2021-05-29 17:01 | NUR ---
pt threw ativan down sink
[2021-05-29] MEDS ORDERED: QUETIAPINE 100MG TABLET PO SCH (21:00)
== END 2021-05-29 17:07 | disposition other institution (70) ==
LOC: ED 11:48
DX: F20.0 Paranoid schizophrenia (principal); Z20.822 Contact with and (suspected) exposure to COVID-19; K21.9 Gastro-esophageal reflux disease without esophagitis
CPT/HCPCS: 36415; 80048; 80299; 80307; 80320; 80329; 82040; 84703; 85025; 87426; 99283; G0480

== ENCOUNTER 2021-05-29 14:37 | Inpatient (IN) | payer MEDICAID ==
[~2021-05-29] VITALS: Ht 157.5 cm; Wt 77.4 kg
[2021-05-29] MEDS ORDERED: BISACODYL 10 MG SUPP PR PRN (16:00)
[2021-05-29] MEDS ORDERED: POLYETHYLENE GLYCOL 17 GM PACKET PO PRN (16:00)
[2021-05-29] MEDS ORDERED: ONDANSETRON ODT 4 MG PO PRN (16:00)
[2021-05-29] MEDS ORDERED: DOCUSATE 100 MG CAPSULE PO PRN (16:00)
[2021-05-29] MEDS ORDERED: PLEASE ENTER HEIGHT AND WEIGHT MC SCH (17:30)
[2021-05-29 17:34] VITALS: BP 112/81
[2021-05-29 19:34] VITALS: BP 116/79
[2021-05-29] MEDS: QUETIAPINE 100MG TABLET PO SCH (20:19)
[2021-05-30] MEDS ORDERED: ZIPRASIDONE 40MG CAPSULE ONE (06:13)
[2021-05-30] MEDS ORDERED: ZIPRASIDONE 20 MG INJ IM ONE (06:30)
[2021-05-30] MEDS ORDERED: ZIPRASIDONE 40MG CAPSULE PO ONE (06:30)
[2021-05-30 07:36] VITALS: BP 132/93
[2021-05-30] MEDS ORDERED: ZIPRASIDONE 20MG CAPSULE PO ONE (08:00)
[2021-05-30] MEDS ORDERED: LORazepam 1MG TABLET PO ONE (08:00)
[2021-05-30] MEDS ORDERED: ARTIFICIAL TEARS 15 DROP/ML BOTTLE EACHEYE PRN (14:30)
[2021-05-30 19:48] VITALS: BP 137/90
[2021-05-30] MEDS: CARBAMAZEPINE 200 MG TABLET PO SCH (20:52)
[2021-05-30] MEDS: QUETIAPINE 100MG TABLET PO SCH (20:53)
[2021-05-31 06:05] LABS: BASOPHILS % (AUTO) 0 % (0-1); EOSINOPHILS % (AUTO) 0 % (1-7); LYMPHOCYTES % (AUTO) 27 % (22-44); MEAN CORPUSCULAR HEMOGLOBIN 30.7 pg (27.0-34.8); MEAN CORPUSCULAR HGB CONC 34.1 g/dL (32.4-35.8); MEAN PLATELET VOLUME 8.1 fL (7.4-10.4); MONOCYTES % (AUTO) 6 % (2-9); NEUTROPHILS % (AUTO) 66 % (42-75); PLATELET COUNT 318 x10^3/uL (130-400); RED BLOOD COUNT 4.75 x10^6/uL (3.82-5.3); RED CELL DISTRIBUTION WIDTH 13.5 % (9.6-15.2)
[2021-05-31 06:27] LABS: CHLORIDE 107 mmol/L (98-107)
[2021-05-31 06:44] LABS: ALANINE AMINOTRANSFERASE 42 U/L (12-78); ALBUMIN 4.1 g/dL (3.4-5.0); ALKALINE PHOSPHATASE 109 U/L (45-117); ANION GAP 9 mmol/L (5-15); BILIRUBIN,TOTAL 0.5 mg/dL (0.2-1.0); CALCIUM 9.2 mg/dL (8.5-10.1); CREATININE 0.55 mg/dL (0.55-1.02); TOTAL PROTEIN 7.6 g/dL (6.4-8.2)
[2021-05-31 07:30] VITALS: BP 130/84
[2021-05-31] MEDS ORDERED: ZIPRASIDONE 40MG CAPSULE ONE (07:39)
[2021-05-31] MEDS ORDERED: LORazepam 1MG TABLET PO ONE (08:00)
[2021-05-31] MEDS ORDERED: ZIPRASIDONE 40MG CAPSULE PO PRN (08:00)
[2021-05-31] MEDS: CARBAMAZEPINE 200 MG TABLET PO SCH ×3 (09:00→20:51)
[2021-05-31 19:18] VITALS: BP 132/81
[2021-05-31] MEDS ORDERED: POTASSIUM CHLORIDE 20 MEQ PACKET PO SCH (19:30)
[2021-05-31] MEDS ORDERED: POTASSIUM CHLORIDE 20 MEQ PACKET ONE ×2 (20:50→20:57)
[2021-05-31] MEDS: QUETIAPINE 100MG TABLET PO SCH (20:52)
[2021-05-31] MEDS: POTASSIUM CHLORIDE 20 MEQ TAB.ER.PRT PO SCH (21:30)
[2021-06-01 07:26] VITALS: BP 132/87
[2021-06-01] MEDS: CARBAMAZEPINE 200 MG TABLET PO SCH ×2 (08:41→20:49)
[2021-06-01] MEDS: POTASSIUM CHLORIDE 20 MEQ TAB.ER.PRT PO SCH (08:41)
[2021-06-01] MEDS ORDERED: POTASSIUM CHLORIDE 20 MEQ TAB.ER.PRT PO SCH (09:00)
[2021-06-01] MEDS ORDERED: POTASSIUM CHLORIDE 10% 40 MEQ/30 ML UDC PO SCH (09:00)
[2021-06-01 18:55] VITALS: BP 123/87
[2021-06-01] MEDS: QUETIAPINE 100MG TABLET PO SCH (20:49)
[2021-06-02 07:42] VITALS: BP 135/88
[2021-06-02] MEDS: POTASSIUM CHLORIDE 20 MEQ TAB.ER.PRT PO SCH ×2 (08:41→08:48)
[2021-06-02] MEDS: CARBAMAZEPINE 200 MG TABLET PO SCH ×2 (08:41→22:00)
[2021-06-02 19:24] VITALS: BP 133/90
[2021-06-02 23:38] LABS: MICROSCOPIC INDICATED
[2021-06-03] MEDS: QUETIAPINE 100MG TABLET PO SCH ×2 (01:30→20:37)
[2021-06-03 07:24] VITALS: BP 133/94
[2021-06-03] MEDS: CARBAMAZEPINE 200 MG TABLET PO SCH ×2 (09:00→20:38)
[2021-06-03] MEDS: PALIPERIDONE 3 MG TAB.ER.24 PO SCH (15:30)
[2021-06-03 19:53] VITALS: BP 129/85
[2021-06-03] MEDS ORDERED: CEFTRIAXONE 1,000 MG in DEXTROSE 5% 50 ML IVPB SCH (22:00)
[2021-06-03] MEDS: CEFDINIR 300 MG CAPSULE PO SCH (22:13)
[2021-06-04 07:15] VITALS: BP 126/89
[2021-06-04] MEDS: CARBAMAZEPINE 200 MG TABLET PO SCH ×3 (09:00→21:00)
[2021-06-04] MEDS: PALIPERIDONE 3 MG TAB.ER.24 PO SCH ×2 (09:00→09:45)
[2021-06-04] MEDS: CEFDINIR 300 MG CAPSULE PO SCH ×3 (09:00→21:00)
[2021-06-04] MEDS ORDERED: PALIPERIDONE PALMITATE 234 MG/1.5 ML IM ONE (16:30)
[2021-06-04 19:46] VITALS: BP 129/84
[2021-06-04] MEDS ORDERED: LORazepam 2 MG/ML, 1ML IM ONE (21:00)
[2021-06-04] MEDS: QUETIAPINE 100MG TABLET PO SCH (21:00)
[2021-06-04] MEDS ORDERED: DIPHENHYDRAMINE 50 MG/ML, 1ML IM ONE (21:00)
[2021-06-05 07:04] VITALS: BP 125/63
[2021-06-05 07:31] VITALS: BP 125/83
[2021-06-05] MEDS: CARBAMAZEPINE 200 MG TABLET PO SCH ×2 (09:03→20:23)
[2021-06-05] MEDS: PALIPERIDONE 3 MG TAB.ER.24 PO SCH (09:04)
[2021-06-05] MEDS: CEFDINIR 300 MG CAPSULE PO SCH ×2 (09:04→20:23)
[2021-06-05 19:30] VITALS: BP 114/82
[2021-06-05] MEDS: QUETIAPINE 100MG TABLET PO SCH (20:23)
[2021-06-06 07:34] VITALS: BP 118/85
[2021-06-06] MEDS: CARBAMAZEPINE 200 MG TABLET PO SCH ×2 (08:37→21:09)
[2021-06-06] MEDS: PALIPERIDONE 3 MG TAB.ER.24 PO SCH (08:37)
[2021-06-06] MEDS: CEFDINIR 300 MG CAPSULE PO SCH ×2 (08:38→21:09)
[2021-06-06] MEDS ORDERED: CEFD300C37 PO (17:43)
[2021-06-06 19:33] VITALS: BP 124/78
[2021-06-06] MEDS: QUETIAPINE 100MG TABLET PO SCH (21:08)
[2021-06-07 07:31] VITALS: BP 121/77
[2021-06-07] MEDS: CEFDINIR 300 MG CAPSULE PO SCH (08:20)
[2021-06-07] MEDS: PALIPERIDONE 3 MG TAB.ER.24 PO SCH (08:20)
[2021-06-07] MEDS: CARBAMAZEPINE 200 MG TABLET PO SCH (08:21)
[2021-06-07] MEDS: ACETAMINOPHEN 325 MG TABLET PO PRN ×2 (08:24→14:00)
[2021-06-07] MEDS ORDERED: PALI3TAB11 PO (14:15)
[2021-06-07] MEDS ORDERED: CARB200T4 PO (14:15)
[2021-06-07] MEDS ORDERED: QUET100T PO (14:15)
== END 2021-06-07 14:42 | disposition home or self-care (01) | DRG 885 ==
LOC: 3E 17:09
PROVIDERS: ADMIT Psychiatry & Neurology Psychosomatic Medicine; ATTEND Psychiatry & Neurology Psychosomatic Medicine
DX: F20.0 Paranoid schizophrenia (principal); N39.0 Urinary tract infection, site not specified; F12.10 Cannabis abuse, uncomplicated; K21.9 Gastro-esophageal reflux disease without esophagitis; F41.1 Generalized anxiety disorder; Z79.899 Other long term (current) drug therapy; Z91.19 Patient's noncompliance with other medical treatment and regimen; Z98.51 Tubal ligation status
CPT/HCPCS: 36415; 80053; 81001; 84443; 85025; 87077; 87086; 87186; Q0162; J2060; J2426

== ENCOUNTER 2021-07-14 02:46 | Emergency (ER) | payer MEDICAID ==
[~2021-07-14] VITALS: Ht 157.5 cm; Wt 81.4 kg
[~2021-07-14 02:46] MED LIST changes: +CARB200T4 PO; +CEFD300C37 PO; +PALI3TAB11 PO
--- NOTE | 2021-07-14 03:32 | NUR ---
Pt ambulatory to restroom with steady gait
[2021-07-14 03:39] LABS: BASOPHILS % (AUTO) 1 % (0-1); EOSINOPHILS % (AUTO) 0 % (1-7); LYMPHOCYTES % (AUTO) 24 % (22-44); MEAN CORPUSCULAR HEMOGLOBIN 30.2 pg (27.0-34.8); MEAN CORPUSCULAR HGB CONC 34.5 g/dL (32.4-35.8); MEAN PLATELET VOLUME 7.5 fL (7.4-10.4); MONOCYTES % (AUTO) 5 % (2-9); NEUTROPHILS % (AUTO) 70 % (42-75); PLATELET COUNT 455 x10^3/uL (130-400); RED BLOOD COUNT 4.77 x10^6/uL (3.82-5.3); RED CELL DISTRIBUTION WIDTH 13.9 % (9.6-15.2)
--- NOTE | 2021-07-14 03:45 | NUR ---
Pt ambulatory to restroom
[2021-07-14 03:48] LABS: ALANINE AMINOTRANSFERASE 93 U/L (12-78); ALBUMIN 3.9 g/dL (3.4-5.0); ANION GAP 8 mmol/L (5-15); CALCIUM 8.8 mg/dL (8.5-10.1); CHLORIDE 106 mmol/L (98-107)
[2021-07-14] MEDS ORDERED: QUETIAPINE 100MG TABLET ONE (03:51)
[2021-07-14 03:58] LABS: ALKALINE PHOSPHATASE 110 U/L (45-117); BILIRUBIN,TOTAL 0.2 mg/dL (0.2-1.0); TOTAL PROTEIN 7.7 g/dL (6.4-8.2)
[2021-07-14 04:00] LABS: SALICYLATE LEVEL < 1.7 mg/dL (2.8-20.0)
[2021-07-14] MEDS ORDERED: QUETIAPINE 100MG TABLET PO ONE (04:00)
--- NOTE | 2021-07-14 04:59 | NUR ---
pt resting in bed with eyes closed, sitter in view of pt
[2021-07-14 05:49] LABS: AMPHETAMINE SCREEN, URINE Negative (Negative); BARBITURATE SCREEN, URINE Negative (Negative); BENZODIAZEPINE SCREEN, URINE Negative (Negative); CANNABINOID SCREEN, URINE Positive (Negative); COCAINE SCREEN, URINE Positive (Negative); METHADONE SCREEN, URINE Negative (Negative); OPIATE SCREEN, URINE Negative (Negative)
--- NOTE | 2021-07-14 05:57 | NUR ---
Contacted U regarding accepting patient for admission. U to evaluate.
--- NOTE | 2021-07-14 06:26 | NUR ---
pt resting in bed with even and symmetrical chest rise, sitter in view of pt, wctm
--- NOTE | 2021-07-14 06:57 | NUR ---
REPORT FROM ONI, ASSUME CARE OF PT AT THIS TIME. PT SLEEPING AT THIS TIME. SITTER AT DOORWAY.
--- NOTE | 2021-07-14 07:52 | NUR ---
Throughput: Packet faxed jey NAIR, marybeth, JAILYN, VITOR at this time.
--- NOTE | 2021-07-14 07:59 | NUR ---
DJ called from [facility] and pt is denied due to insurance
[2021-07-14 08:36] VITALS: BP 103/69
--- NOTE | 2021-07-14 08:39 | NUR ---
[facility] ACCEPTING PT. RAPID COVID SWAB COLLECTED/WALKED TO LAB. VSS/UDATED IN COMPUTER. ED DIET TRAY PROVIDED, PT DECLINES TRAY AT THIS TIME, STATING "I'M NOT HUNGRY".
--- NOTE | 2021-07-14 09:24 | NUR ---
REPORT GIVEN TO LARRY MAXWELL.
--- NOTE | 2021-07-14 09:37 | NUR ---
CALL TO U, INQUIRE ABOUT THEIR ABILITY TO COME TRANSPORT PT TO FLOOR. RN AND TECH TO COME GET PT IN 15 MINUTES.
[2021-07-14] MEDS ORDERED: ALBU18HF INH (11:42)
== END 2021-07-14 10:21 ==
LOC: ED 05:48
DX: R45.851 Suicidal ideations (principal); F20.0 Paranoid schizophrenia; Z20.822 Contact with and (suspected) exposure to COVID-19; K21.9 Gastro-esophageal reflux disease without esophagitis; J45.909 Unspecified asthma, uncomplicated
CPT/HCPCS: 36415; 80053; 80299; 80307; 80320; 80329; 84443; 84703; 85025; 87426; 93005; 99285; G0480

== ENCOUNTER 2021-07-14 09:58 | Inpatient (IN) | payer MEDICAID ==
[~2021-07-14] VITALS: Ht 157.5 cm; Wt 79.6 kg
[2021-07-14] MEDS ORDERED: PLEASE ENTER HEIGHT AND WEIGHT MC SCH (10:30)
[2021-07-14] MEDS ORDERED: ACETAMINOPHEN 325 MG TABLET PO PRN (10:30)
[2021-07-14] MEDS ORDERED: POLYETHYLENE GLYCOL 17 GM PACKET PO PRN (10:30)
[2021-07-14] MEDS ORDERED: DOCUSATE 100 MG CAPSULE PO PRN (10:30)
[2021-07-14] MEDS ORDERED: ONDANSETRON ODT 4 MG PO PRN (10:30)
[2021-07-14] MEDS ORDERED: BISACODYL 10 MG SUPP PR PRN (10:30)
[2021-07-14 10:39] LABS: FREE T4 (FREE THYROXINE) 0.98 ng/dL (0.76-1.46)
[2021-07-14] MEDS ORDERED: ALBU18HF INH (11:42)
[2021-07-14] MEDS ORDERED: ALBUTEROL HFA 90 MCG/SPRAY INH PRN (12:00)
[2021-07-14] MEDS: CARBAMAZEPINE 200 MG TABLET PO SCH ×2 (12:40→19:44)
[2021-07-14 15:23] VITALS: BP 104/70
[2021-07-14 19:18] VITALS: BP 132/92
[2021-07-14] MEDS: QUETIAPINE 100MG TABLET PO SCH (19:44)
[2021-07-15 07:23] VITALS: BP 135/78
[2021-07-15] MEDS: CARBAMAZEPINE 200 MG TABLET PO SCH ×2 (08:32→20:48)
[2021-07-15 19:29] VITALS: BP 132/70
[2021-07-15] MEDS: QUETIAPINE 100MG TABLET PO SCH (20:41)
[2021-07-16 07:26] VITALS: BP 108/73
[2021-07-16] MEDS: CARBAMAZEPINE 200 MG TABLET PO SCH ×2 (09:49→20:06)
[2021-07-16 14:45] LABS: MICROSCOPIC INDICATED
[2021-07-16 19:19] VITALS: BP 135/91
[2021-07-16] MEDS: QUETIAPINE 100MG TABLET PO SCH (20:06)
[2021-07-17 07:34] VITALS: BP 121/80
[2021-07-17] MEDS: CARBAMAZEPINE 200 MG TABLET PO SCH (09:49)
== END 2021-07-17 10:15 | disposition left against medical advice (07) | DRG 885 ==
LOC: 3E 10:08 → UNDODISIN 07-17 10:15
PROVIDERS: ADMIT Psychiatry & Neurology Psychosomatic Medicine; ATTEND Psychiatry & Neurology Psychosomatic Medicine
DX: F20.0 Paranoid schizophrenia (principal); R45.851 Suicidal ideations; F12.90 Cannabis use, unspecified, uncomplicated; J45.909 Unspecified asthma, uncomplicated; R45.850 Homicidal ideations; Z53.29 Procedure and treatment not carried out because of patient's decision for other reasons
CPT/HCPCS: 36415; 80053; 80299; 80307; 80320; 80329; 81001; 84439; 84443; 84703; 85025; 87086; 87426; 93005; 99285; G0480